=== PATIENT | female | born 1955 | race Native Hawaiian/Other Pacific Islander ===

== ENCOUNTER 2018-06-17 23:53 | Emergency (ER) | payer BC, OTHER ==
[~2018-06-17] VITALS: Ht 160 cm; Wt 79.4 kg
[~2018-06-17 23:53] MED LIST: ASPI81TA31 PO; CLOP75TA15 PO; LIPITOR PO; LOPRESSOR PO; LOVAZA PO; METFORMIN PO
[2018-06-18] MEDS ORDERED: ALBUTEROL SULFATE 2.5 MG/3 ML NEBU ONE (00:12)
[2018-06-18] MEDS ORDERED: IPRATROPIUM BROMIDE 0.5 MG/2.5 ML NEBU ONE (00:13)
[2018-06-18] MEDS ORDERED: ALBUTEROL SULFATE 2.5 MG/3 ML NEBU NEB ONE (00:15)
[2018-06-18] MEDS ORDERED: IPRATROPIUM BROMIDE 0.5 MG/2.5 ML NEBU NEB ONE (00:15)
[2018-06-18] MEDS ORDERED: predniSONE 50 MG TABLET PO ONE (01:30)
[2018-06-18] MEDS ORDERED: predniSONE 50 MG TABLET ONE (01:37)
--- NOTE | 2018-06-18 01:40 | NUR ---
Patient discharged to home in stable conditon. Written and verbal after care instructions given. Patient verbalizes understanding of instructions. Pt ambulated out of ER in steady gait with no acute distress noted. VSS. All belongings with pt. Pt states she feels better.
[2018-06-18 01:42] VITALS: BP 134/77
== END 2018-06-18 01:44 | disposition home or self-care (01) ==
LOC: ER 23:55
DX: J40 Bronchitis, not specified as acute or chronic (principal); E78.5 Hyperlipidemia, unspecified; E11.9 Type 2 diabetes mellitus without complications; Z95.1 Presence of aortocoronary bypass graft; Z90.49 Acquired absence of other specified parts of digestive tract; Z79.82 Long term (current) use of aspirin; Z79.01 Long term (current) use of anticoagulants; Z79.899 Other long term (current) drug therapy
CPT/HCPCS: 71045; 94640; 99283; J7512; A4663; J3590

== ENCOUNTER 2019-05-05 19:43 | Emergency (ER) | payer BC ==
[~2019-05-05] VITALS: Ht 160 cm; Wt 81.2 kg
[2019-05-05] MEDS ORDERED: RAMI5CAP30 PO (19:53)
[2019-05-05] MEDS ORDERED: POTA20PA34 PO (19:53)
[2019-05-05] MEDS ORDERED: FURO-151 PO (19:53)
[2019-05-05] MEDS ORDERED: FENO145T37 PO (19:53)
[2019-05-05] MEDS ORDERED: PREG25CA PO (19:53)
[2019-05-05] MEDS ORDERED: PRAM0.122 PO (19:53)
[2019-05-05] MEDS ORDERED: REPA2TAB PO (19:53)
[2019-05-05] MEDS ORDERED: FLUORESCEIN SODIUM 1 MG STRIP ONE (19:59)
[2019-05-05] MEDS ORDERED: TETRACAINE HCL 0.5% OPHT DROP 2 ML BOTTLE ONE (19:59)
[2019-05-05] MEDS ORDERED: TETRACAINE HCL 0.5% OPHT DROP 2 ML BOTTLE OP ONE (20:00)
[2019-05-05] MEDS ORDERED: FLUORESCEIN SODIUM 1 MG STRIP OP ONE (20:00)
--- NOTE | 2019-05-05 20:00 | NUR ---
PT WALKED IN TO THE ER C/O R EYE ERYTHEMA, ITCHY, WATERY DISCHARGEX1 DAY PT ABLE TO SPEAK CLEAR AND COMPLETE SENTENCES DENIES FEVERS/CHILLS/N/V/D NO APPARENT DISTRESS DENIES WEAR OF CONTACT LENSES DENIES RECENT TRAUMA NOR SURGERIES TO THE SITE USES READING GLASSES KEPT WARM DRY AND COMFORTABLE MONITORED ACCORDINGLY SIDERAILSX2 UP BED AT LOWEST POSITION Addendum: 05/05/19 at 2004 by ANNIE DENIES LIGHT SENSITIVITY DENIES BLURRED VISION PT DESCRIBES BURNING R EYE PAIN AND DISCOMFORT 11/15
[2019-05-05 21:37] LABS: BASOPHILS # (AUTO) 0.1 K/uL (0.0-8.0); BASOPHILS % (AUTO) 1.3 % (0.0-2.0); EOSINOPHILS # (AUTO) 0.3 K/uL (0.0-0.7); EOSINOPHILS % (AUTO) 5.4 % (0.0-7.0); HEMATOCRIT 39.4 % (31.2-41.9); LYMPHOCYTES # (AUTO) 1.5 K/uL (20.0-40.0); LYMPHOCYTES % (AUTO) 26.1 % (20.5-51.5); MEAN CORPUSCULAR HEMOGLOBIN 29.1 uug (24.7-32.8); MEAN CORPUSCULAR HGB CONC 33 g/dL (32.3-35.6); MEAN CORPUSCULAR VOLUME 88.3 fL (75.5-95.3); MONOCYTES # (AUTO) 0.7 K/uL (2.0-10.0); MONOCYTES % (AUTO) 11.9 % (0.0-11.0); NEUTROPHILS # (AUTO) 3.2 K/uL (1.8-8.9); NEUTROPHILS % (AUTO) 55.3 % (38.5-71.5); PLATELET COUNT (AUTO) 264 K/uL (179-408); RED BLOOD CELL COUNT(AUTO) 4.47 MIL/uL (3.63-4.92); WHITE BLOOD COUNT (AUTO) 5.7 K/uL (3.8-11.8)
[2019-05-05] MEDS ORDERED: ACYCLOVIR 200 MG CAPSULE ONE ×2 (21:39→22:57)
[2019-05-05] MEDS ORDERED: ACYCLOVIR 400 MG TABLET PO ONE ×2 (21:45→23:00)
[2019-05-05 21:50] LABS: CREATININE 0.7 mg/dL (0.6-1.3); POTASSIUM 4.3 mmol/L (3.5-5.1)
--- NOTE | 2019-05-05 21:55 | NUR ---
MD PROMPTED TRANSFER RECOMMENDATION FOR HIGHER LEVEL OF CARE: DX HERPES SIMPLEX KERATOSIS PT AWARE AND SIGNED TRANSFER ACKNOWLEDGEMENT FORMS
--- NOTE | 2019-05-05 22:12 | NUR ---
RN (ROXANA) ON THE PHONE WITH [facility]
--- NOTE | 2019-05-05 22:13 | NUR ---
[facility] TRANSFER TO FAX CLINICALS TO [phone] ([facility])
--- NOTE | 2019-05-05 22:54 | NUR ---
OPHTHAMOLOGY ON THE PHONE WITH NANCY
[2019-05-05] MEDS ORDERED: AMOXICILLIN-CLAVUL 875-125MG TABLET ONE (22:57)
[2019-05-05] MEDS ORDERED: AMOXICILLIN-CLAVUL 875-125MG TABLET PO ONE (23:00)
--- NOTE | 2019-05-05 23:47 | NUR ---
Patient discharged to home in stable conditon. Written and verbal after care instructions given. Patient verbalizes understanding of instructions. AMBULATORY W/ STABLE GAIT ALL BELONGINGS W/ PT
[2019-05-06 00:31] VITALS: BP 123/95
== END 2019-05-06 00:01 | disposition home or self-care (01) ==
LOC: ER 19:43
DX: B00.52 Herpesviral keratitis (principal); H05.011 Cellulitis of right orbit; E78.5 Hyperlipidemia, unspecified; E11.9 Type 2 diabetes mellitus without complications; Z95.1 Presence of aortocoronary bypass graft; Z90.49 Acquired absence of other specified parts of digestive tract; Z79.82 Long term (current) use of aspirin; Z79.84 Long term (current) use of oral hypoglycemic drugs; Z79.899 Other long term (current) drug therapy; Z79.01 Long term (current) use of anticoagulants
CPT/HCPCS: 36415; 85025; A4663

== ENCOUNTER 2019-10-26 05:50 | Inpatient (IN) | payer BC ==
[~2019-10-26] VITALS: Ht 165.1 cm; Wt 83.1 kg
[~2019-10-26 05:50] MED LIST changes: +FENO145T21 PO; +FURO-151 PO; -LOVAZA PO; +POTA20PA34 PO; +PRAM0.122 PO; +PREG25CA PO; +RAMI5CAP30 PO; +REPA2TAB PO
--- NOTE | 2019-10-26 05:50 | NUR ---
Dr. Evans at bedside for MSE
--- NOTE | 2019-10-26 06:00 | NUR ---
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 Able to ambulate to [facility] without assistance. c/o dizziness and chest pressure x1 wk. Patient states that she feels like the room is spinning and some light headedness. Patient also states that her SBP was in the high 80s [employer]. Speech is clear and able to make needs known / follow commands. Breathing even and unlabored. no cough or SOB noted. Patient denies any CP but increased pressure with activities. Denies any N / V / D.
[2019-10-26] MEDS ORDERED: REPA2TAB PO (06:13)
[2019-10-26] MEDS ORDERED: isosorbide PO (06:13)
[2019-10-26] MEDS ORDERED: POTA-10 PO (06:13)
[2019-10-26 06:26] LABS: BASOPHILS # (AUTO) 0.1 K/uL (0.0-8.0); BASOPHILS % (AUTO) 1.4 % (0.0-2.0); EOSINOPHILS # (AUTO) 0.5 K/uL (0.0-0.7); EOSINOPHILS % (AUTO) 7.8 % (0.0-7.0); HEMATOCRIT 39.4 % (31.2-41.9); HEMOGLOBIN 13.1 g/dL (10.9-14.3); LYMPHOCYTES # (AUTO) 1.6 K/uL (20.0-40.0); LYMPHOCYTES % (AUTO) 25.5 % (20.5-51.5); MEAN CORPUSCULAR HEMOGLOBIN 28.4 uug (24.7-32.8); MEAN CORPUSCULAR HGB CONC 33 g/dL (32.3-35.6); MEAN CORPUSCULAR VOLUME 85.1 fL (75.5-95.3); MONOCYTES # (AUTO) 0.8 K/uL (2.0-10.0); MONOCYTES % (AUTO) 12.5 % (0.0-11.0); NEUTROPHILS # (AUTO) 3.3 K/uL (1.8-8.9); NEUTROPHILS % (AUTO) 52.8 % (38.5-71.5); PLATELET COUNT (AUTO) 272 K/uL (179-408); RED BLOOD CELL COUNT(AUTO) 4.63 MIL/uL (3.63-4.92); WHITE BLOOD COUNT (AUTO) 6.3 K/uL (3.8-11.8)
--- NOTE | 2019-10-26 06:30 | NUR ---
Patient taken to CT scan in stable condition
[2019-10-26 06:31] LABS: CREATININE 1.1 mg/dL (0.6-1.3); POTASSIUM 3.5 mmol/L (3.5-5.1)
[2019-10-26 06:44] LABS: BILIRUBIN,DIRECT 0.1 mg/dL (0.0-0.2); BILIRUBIN,TOTAL 0.3 mg/dL (0.2-1.0); TOTAL PROTEIN, SERUM 7.3 g/dL (6.4-8.2)
--- NOTE | 2019-10-26 06:44 | NUR ---
Patient back from CT scan
--- NOTE | 2019-10-26 07:04 | NUR ---
Report given to aliyah SULLIVAN
[2019-10-26] MEDS ORDERED: ONDANSETRON 4 MG/2 ML VIAL IV PRN (07:45)
[2019-10-26] MEDS ORDERED: ASPIRIN 325 MG TABLET PO ONE (07:45)
[2019-10-26] MEDS ORDERED: ACETAMINOPHEN 325 MG TABLET PO PRN (07:45)
[2019-10-26] MEDS ORDERED: Z GUARD REMEDY PASTE 57 GM TUBE TOP PRN (07:45)
[2019-10-26] MEDS ORDERED: HYDROCODONE/APAP 5-325MG TABLET PO PRN (07:45)
[2019-10-26] MEDS ORDERED: MAGNESIUM HYDROXIDE 30 ML LIQUID UDC PO PRN (07:45)
--- NOTE | 2019-10-26 07:59 | NUR ---
Telephone report given to Angelica Cunningham pt. will be transfer via wheel chair. Pt. AAOX4. vitals stable. No c/of pain temp of 98.0
--- NOTE | 2019-10-26 08:00 | NUR ---
Received pt in bed AOx4, on room air with no complaints of SOB or distress at this time. No complaints of chest tightness at this time. Oriented to unit, call light and belongings within reach. Bed locked in lowest position with siderails 2x up. Will continue to monitor
[2019-10-26 08:58] VITALS: BP 124/66
[2019-10-26] MEDS ORDERED: ATOR40TA PO (09:55)
[2019-10-26] MEDS ORDERED: CLOPIDOGREL 75 MG TABLET PO SCH (10:00)
[2019-10-26] MEDS ORDERED: ISOSORBIDE MONONITRATE 60 MG TAB.SR.24H PO SCH (10:00)
[2019-10-26] MEDS ORDERED: FENOFIBRATE NANOCRYSTALLIZED 145 MG TABLET PO SCH (10:00)
[2019-10-26] MEDS ORDERED: PRAMIPEXOLE DI HCL 0.125 MG PO SCH (10:00)
[2019-10-26] MEDS ORDERED: REPAGLINIDE 2 MG PO SCH (10:00)
[2019-10-26] MEDS ORDERED: FUROSEMIDE 40 MG TABLET PO SCH (10:00)
[2019-10-26] MEDS ORDERED: METOPROLOL TARTRATE 50 MG TABLET PO SCH (10:00)
[2019-10-26] MEDS ORDERED: EMPA10TA PO (10:10)
[2019-10-26] MEDS ORDERED: CHOL500050 (10:18)
[2019-10-26] MEDS ORDERED: CHOL1CRY2 MC (10:18)
[2019-10-26] MEDS ORDERED: CHOL10002 PO (10:18)
[2019-10-26] MEDS: PREGABALIN 25 MG CAPSULE PO SCH ×2 (11:22→16:50)
[2019-10-26] MEDS: RAMIPRIL 5 MG CAPSULE PO SCH ×2 (11:30→16:55)
[2019-10-26] MEDS: REPAGLINIDE 1 MG TABLET PO SCH ×2 (11:31→16:50)
[2019-10-26 11:35] VITALS: BP_SYST 118; BP_SYST 122; BP_SYST 129; BP_DIAS 59; BP_DIAS 73; BP_DIAS 74
[2019-10-26] MEDS ORDERED: IV NORMAL SALINE 500 ML IV ONE (11:45)
[2019-10-26] MEDS ORDERED: POTASSIUM CHLORIDE 20 MEQ POWDER PACKET GT ONE (11:45)
[2019-10-26] MEDS ORDERED: FURO-152 PO (12:20)
[2019-10-26 15:28] VITALS: BP 108/53
[2019-10-26 16:55] VITALS: BP 101/52
--- NOTE | 2019-10-26 17:00 | NUR ---
No issues throughout the shift. Pt wanted to go home, informed Leticia Garcia, will put in DC orders
[2019-10-26] MEDS ORDERED: METFORMIN HCL 500 MG TABLET PO SCH (18:00)
[2019-10-26] MEDS ORDERED: ATORVASTATIN 40 MG TABLET PO SCH (21:00)
[2019-10-26] MEDS ORDERED: PRAMIPEXOLE 0.25 MG TABLET PO SCH (21:00)
[2019-10-27] MEDS ORDERED: ASPIRIN 81 MG TAB.CHEW PO SCH (09:00)
[2019-10-27] MEDS ORDERED: POTASSIUM CHLORIDE 10 MEQ TAB.PRT.SR PO SCH (09:00)
== END 2019-10-26 21:12 | disposition home or self-care (01) | DRG 280 ==
LOC: ER 05:53 → TELE3 07:42
PROVIDERS: ADMIT Nurse Practitioner Acute Care; ATTEND Nurse Practitioner Acute Care
DX: I25.10 Atherosclerotic heart disease of native coronary artery without angina pectoris (principal); I21.A1 Myocardial infarction type 2; N17.0 Acute kidney failure with tubular necrosis; I50.32 Chronic diastolic (congestive) heart failure; E11.9 Type 2 diabetes mellitus without complications; E78.5 Hyperlipidemia, unspecified; E86.0 Dehydration; Z95.1 Presence of aortocoronary bypass graft; G47.33 Obstructive sleep apnea (adult) (pediatric); I11.0 Hypertensive heart disease with heart failure; R42 Dizziness and giddiness; T50.2X5A Adverse effect of carbonic-anhydrase inhibitors, benzothiadiazides and other diuretics, initial encounter; Y92.89 Other specified places as the place of occurrence of the external cause
CPT/HCPCS: 36415; 70030-TC; 70450; 71045; 85025; 85730; 93005; 93307; G0378; J7040

== ENCOUNTER 2021-10-08 18:35 | Emergency (ER) | payer BC ==
[~2021-10-08] VITALS: Ht 165.1 cm; Wt 81.6 kg
[~2021-10-08 18:35] MED LIST changes: +ATOR40TA PO; +CHOL10002 PO; +EMPA10TA PO; -FURO-151 PO; +FURO-152 PO; -LIPITOR PO; +POTA-10 PO; -POTA20PA34 PO; +isosorbide PO
--- NOTE | 2021-10-08 19:02 | NUR ---
RECEIVED REPORT FROM NATE COY. PT NOTED TO BE IN BED RESTING COMFORTABLY, NO SOB OR LABORED BREATHING. DENIES PAIN AT THIS TIME.
[2021-10-08] MEDS ORDERED: FLUORESCEIN SODIUM 1 MG STRIP OP ONE (19:15)
[2021-10-08] MEDS ORDERED: TETRACAINE HCL 0.5% OPHT DROP 2 ML BOTTLE ONE (19:15)
[2021-10-08] MEDS ORDERED: FLUORESCEIN SODIUM 1 MG STRIP ONE (19:15)
[2021-10-08] MEDS ORDERED: TETRACAINE HCL 0.5% OPHT DROP 2 ML BOTTLE OP ONE (19:15)
[2021-10-08] MEDS ORDERED: ERYT3.5O24 RIGHTEYE (20:44)
[2021-10-08] MEDS ORDERED: MOXI3DRO RIGHTEYE (20:44)
--- NOTE | 2021-10-08 20:48 | NUR ---
Patient discharged to home in stable condition. Written and verbal after care instructions given. Patient verbalizes understanding of instructions. Stressed follow up or return to ER for worsening s/s. Steady gait, denies any N/V. No c/o pain/discomfort upon discharge. Picked up by family.
[2021-10-08 20:49] VITALS: BP 144/76
== END 2021-10-08 20:50 | disposition home or self-care (01) ==
LOC: ER 18:45
DX: B99.9 Unspecified infectious disease (principal); H16.8 Other keratitis; R03.0 Elevated blood-pressure reading, without diagnosis of hypertension; E78.5 Hyperlipidemia, unspecified; Z95.1 Presence of aortocoronary bypass graft; Z79.02 Long term (current) use of antithrombotics/antiplatelets; E11.9 Type 2 diabetes mellitus without complications; Z79.84 Long term (current) use of oral hypoglycemic drugs
CPT/HCPCS: A4663

== ENCOUNTER 2024-05-13 18:39 | Emergency (ER) | payer BC, MEDICARE ==
[~2024-05-13] VITALS: Ht 165.1 cm; Wt 81.6 kg
[~2024-05-13 18:39] MED LIST changes: +ERYT3.5O24 RIGHTEYE; +MOXI3DRO RIGHTEYE
[2024-05-13] MEDS ORDERED: FAMOTIDINE. 20 MG/2 ML VIAL IV ONE ×2 (20:13→20:14)
[2024-05-13] MEDS ORDERED: ONDANSETRON 4 MG/2 ML VIAL ONE (20:13)
[2024-05-13 20:18] LABS: BASOPHILS % (AUTO) 0.4 % (0.0-2.0); EOSINOPHILS # (AUTO) 0.3 K/uL (0.0-0.7); HEMATOCRIT 47.4 % (31.2-41.9); HEMOGLOBIN 15.8 g/dL (10.9-14.3); LYMPHOCYTES # (AUTO) 1.1 K/uL (0.8-4.8); MEAN CORPUSCULAR HGB CONC 33 g/dL (32.3-35.6); MEAN CORPUSCULAR VOLUME 86.8 fL (75.5-95.3); MONOCYTES # (AUTO) 0.9 K/uL (0.1-1.30); NEUTROPHILS # (AUTO) 7.5 K/uL (1.8-8.9); NEUTROPHILS % (AUTO) 76.6 % (38.5-71.5); PLATELET COUNT (AUTO) 320 K/uL (179-408); RED BLOOD CELL COUNT(AUTO) 5.46 MIL/uL (3.63-4.92); RED CELL DISTRIBUTION WIDTH 13.8 % (12.3-17.7); WHITE BLOOD COUNT (AUTO) 9.8 K/uL (3.8-11.8)
[2024-05-13] MEDS: FAMOTIDINE. 20 MG/2 ML VIAL IV ONE (20:24)
[2024-05-13] MEDS: ONDANSETRON 4 MG/2 ML VIAL IV ONE (20:24)
[2024-05-13] MEDS: IV NORMAL SALINE 1000 ML BAG IV ONE (20:24)
[2024-05-13 20:28] LABS: DIFFERENTIAL COMMENT 1
[2024-05-13 20:30] LABS: CALCIUM 10.1 mg/dL (8.5-10.1); POTASSIUM 4.3 mmol/L (3.5-5.1)
[2024-05-13 20:35] LABS: ALBUMIN 4.1 g/dL (3.4-5.0); BILIRUBIN,DIRECT 0.3 mg/dL (0.0-0.2); BILIRUBIN,TOTAL 0.9 mg/dL (0.2-1.0); TOTAL PROTEIN, SERUM 8.9 g/dL (6.4-8.2)
[2024-05-13 23:32] LABS: *BILIRUBIN,URIN NEGATIVE (NEGATIVE); *COLOR,URINE YELLOW (YELLOW); *KETONES,URINE NEGATIVE (NEGATIVE); *PROTEIN,URINE NEGATIVE (NEGATIVE); *UROBILINOGEN,URINE 0.2 E.U./dl (NORMAL); LEUKOCYTE ESTERASE ,URINE TRACE (NEGATIVE); NITRITE, URINE NEGATIVE (NEGATIVE); PH,URINE 5.5 (5.0-8.0); UGLUCOSE 3+ (NEGATIVE)
[2024-05-13 23:50] LABS: *BLOOD, URINE TRACE LYSED (NEGATIVE); *CLARITY,URINE SLIGHTLY CLOUDY (CLEAR)
[2024-05-14] LABS: BACTERIA,URINE NONE SEEN /HPF (NONE SEEN); RBC,URINE 0-3 /HPF (0-3); SQUAMOUS EPITHELIAL CELL,UR FEW /HPF (NONE SEEN); WBC,URINE 50-80 /HPF (0-3)
[2024-05-14] MEDS ORDERED: METO25TA6 PO (00:57)
[2024-05-14] MEDS ORDERED: PRAM0.253 PO (00:57)
[2024-05-14] MEDS ORDERED: ISOS60TA72 PO (00:57)
[2024-05-14] MEDS ORDERED: METF-442 PO (00:57)
[2024-05-14] MEDS ORDERED: RAMI10CA69 PO (00:57)
[2024-05-14] MEDS ORDERED: DULA1.5P SQ (00:57)
[2024-05-14] MEDS ORDERED: ALOG25TA PO (00:57)
[2024-05-14] MEDS ORDERED: REMEDY ESSENTIAL ZINC PASTE 113 GM TP PRN (02:00)
[2024-05-14] MEDS ORDERED: ENOXAPARIN SODIUM 40 MG/0.4 ML DISP.SYRIN SQ SCH (02:00)
[2024-05-14] MEDS ORDERED: MAGNESIUM HYDROXIDE 30 ML LIQUID UDC PO PRN (02:00)
[2024-05-14] MEDS ORDERED: ONDANSETRON 4 MG/2 ML VIAL IV PRN (02:00)
[2024-05-14] MEDS ORDERED: ACETAMINOPHEN 325 MG TABLET PO PRN (02:00)
[2024-05-14] MEDS ORDERED: LOPERAMIDE HCL 2 MG CAPSULE PO ONE (02:15)
[2024-05-14 03:17] VITALS: BP 141/78; TEMP 98; O2SAT 98
[2024-05-14] MEDS ORDERED: PANTOPRAZOLE SODIUM 40 MG TABLET.DR PO SCH (07:00)
== END 2024-05-14 03:19 | disposition admitted as inpatient to this hospital (09) ==
LOC: ER 20:22
DX: R11.2 Nausea with vomiting, unspecified (principal); R19.7 Diarrhea, unspecified; E11.9 Type 2 diabetes mellitus without complications; R42 Dizziness and giddiness; R79.89 Other specified abnormal findings of blood chemistry; R55 Syncope and collapse; R94.31 Abnormal electrocardiogram [ECG] [EKG]; E78.5 Hyperlipidemia, unspecified; E86.0 Dehydration; I11.9 Hypertensive heart disease without heart failure; I25.10 Atherosclerotic heart disease of native coronary artery without angina pectoris; Z79.02 Long term (current) use of antithrombotics/antiplatelets; Z79.82 Long term (current) use of aspirin; Z79.84 Long term (current) use of oral hypoglycemic drugs; Z79.899 Other long term (current) drug therapy; Z88.7 Allergy status to serum and vaccine; Z90.49 Acquired absence of other specified parts of digestive tract
CPT/HCPCS: 99285; 96374; 96361; 96375; 80076; 80048; 81001; 83880; 83690; 85025; 84484 ×2; 36415; 93005 ×2; 87086; J3490; J2405; J7040; A4606; A4663

== ENCOUNTER 2024-07-01 18:43 | Inpatient (IN) | payer BC, MEDICARE ==
[~2024-07-01] VITALS: Ht 162.6 cm; Wt 77.1 kg
[~2024-07-01 18:43] MED LIST changes: +ALOG25TA PO; +DULA1.5P SQ; -ERYT3.5O24 RIGHTEYE; +ISOS60TA72 PO; -LOPRESSOR PO; +METF-442 PO; -METFORMIN PO; +METO25TA6 PO; -MOXI3DRO RIGHTEYE; -PRAM0.122 PO; +PRAM0.253 PO; +RAMI10CA69 PO; -RAMI5CAP30 PO; -REPA2TAB PO; -isosorbide PO
[2024-07-01 19:57] LABS: BASOPHILS % (AUTO) 0.3 % (0.0-2.0); EOSINOPHILS % (AUTO) 0.2 % (0.0-7.0); HEMATOCRIT 41.1 % (31.2-41.9); HEMOGLOBIN 13.6 g/dL (10.9-14.3); LYMPHOCYTES # (AUTO) 0.5 K/uL (0.8-4.8); LYMPHOCYTES % (AUTO) 4.1 % (20.5-51.5); MEAN CORPUSCULAR HEMOGLOBIN 28.4 uug (24.7-32.8); MEAN CORPUSCULAR HGB CONC 33 g/dL (32.3-35.6); MEAN CORPUSCULAR VOLUME 86.2 fL (75.5-95.3); MONOCYTES # (AUTO) 0.4 K/uL (0.1-1.30); MONOCYTES % (AUTO) 3.3 % (0.0-11.0); NEUTROPHILS # (AUTO) 10.2 K/uL (1.8-8.9); NEUTROPHILS % (AUTO) 92.1 % (38.5-71.5); PLATELET COUNT (AUTO) 234 K/uL (179-408); RED BLOOD CELL COUNT(AUTO) 4.77 MIL/uL (3.63-4.92); RED CELL DISTRIBUTION WIDTH 13.8 % (12.3-17.7)
[2024-07-01 20:00] LABS: DIFFERENTIAL COMMENT 1
[2024-07-01 20:04] LABS: CALCIUM 9.4 mg/dL (8.5-10.1); CARBON DIOXIDE 24 mmol/L (21-32); CHLORIDE 104 mmol/L (98-107); GLUCOSE 188 mg/dL (74-106); POTASSIUM 3.5 mmol/L (3.5-5.1); SODIUM SERUM 141 mmol/L (136-145); UREA NITROGEN, BLOOD 19 mg/dL (7-18)
[2024-07-01 20:12] LABS: ALANINE AMINOTRANSFERASE 28 U/L (14-59); ALBUMIN 3.5 g/dL (3.4-5.0); ALKALINE PHOSPHATASE 53 U/L (50-136); ASPARTATE AMINOTRANSFERASE 12 U/L (15-37); BILIRUBIN,DIRECT 0.3 mg/dL (0.0-0.2); TOTAL PROTEIN, SERUM 8.1 g/dL (6.4-8.2)
[2024-07-01 20:14] LABS: LACTIC ACID 2.5 mmol/L (0.4-2.0)
[2024-07-01 20:15] LABS: MAGNESIUM 1.4 mg/dL (1.8-2.4)
[2024-07-01] MEDS: ONDANSETRON 4 MG/2 ML VIAL IV ONE (21:10)
[2024-07-01] MEDS ORDERED: MAGNESIUM SULFATE/D5W 200 ML ONE (21:13)
[2024-07-01] MEDS ORDERED: ONDANSETRON 4 MG/2 ML VIAL ONE (21:13)
[2024-07-01] MEDS: MAGNESIUM SULFATE/D5W 100 ML IV SCH (21:18)
[2024-07-01] MEDS: IV NORMAL SALINE 500 ML IV ONE (21:18)
[2024-07-02] MEDS ORDERED: ONDANSETRON 4 MG/2 ML VIAL IV PRN
[2024-07-02] MEDS: ENOXAPARIN SODIUM 80 MG/0.8 ML DISP.SYRIN SQ SCH (01:02)
[2024-07-02 01:10] VITALS: BP 109/51; TEMP 98
[2024-07-02] MEDS: MECLIZINE HCL 12.5 MG TABLET PO PRN (01:16)
[2024-07-02] MEDS: IV NS 1000 ML 1,000 ML IV PRN (01:20)
[2024-07-02 03:24] LABS: *BILIRUBIN,URIN NEGATIVE (NEGATIVE); *BLOOD, URINE 2+ (NEGATIVE); *CLARITY,URINE CLEAR (CLEAR); *COLOR,URINE Other (YELLOW); *KETONES,URINE NEGATIVE (NEGATIVE); *PROTEIN,URINE 1+ (NEGATIVE); *UROBILINOGEN,URINE 0.2 E.U./dl (NORMAL); LEUKOCYTE ESTERASE ,URINE 1+ (NEGATIVE); NITRITE, URINE POSITIVE (NEGATIVE); UGLUCOSE 3+ (NEGATIVE)
[2024-07-02 03:57] LABS: BACTERIA,URINE MODERATE /HPF (NONE SEEN)
[2024-07-02 03:58] LABS: MUCUS,URINE MODERATE /LPF (0-FEW); SQUAMOUS EPITHELIAL CELL,UR FEW /HPF (NONE SEEN)
[2024-07-02 06:45] LABS: BASOPHILS % (AUTO) 0.5 % (0.0-2.0); EOSINOPHILS % (AUTO) 0.5 % (0.0-7.0); HEMATOCRIT 37.8 % (31.2-41.9); HEMOGLOBIN 12.9 g/dL (10.9-14.3); LYMPHOCYTES # (AUTO) 0.8 K/uL (0.8-4.8); LYMPHOCYTES % (AUTO) 9.8 % (20.5-51.5); MEAN CORPUSCULAR HEMOGLOBIN 29.3 uug (24.7-32.8); MEAN CORPUSCULAR HGB CONC 34 g/dL (32.3-35.6); MEAN CORPUSCULAR VOLUME 86.3 fL (75.5-95.3); MONOCYTES # (AUTO) 0.6 K/uL (0.1-1.30); MONOCYTES % (AUTO) 6.9 % (0.0-11.0); NEUTROPHILS # (AUTO) 6.9 K/uL (1.8-8.9); NEUTROPHILS % (AUTO) 82.3 % (38.5-71.5); PLATELET COUNT (AUTO) 208 K/uL (179-408); RED BLOOD CELL COUNT(AUTO) 4.38 MIL/uL (3.63-4.92); WHITE BLOOD COUNT (AUTO) 8.4 K/uL (3.8-11.8)
[2024-07-02 07:04] LABS: CALCIUM 8.4 mg/dL (8.5-10.1); CREATININE 0.8 mg/dL (0.6-1.3); MAGNESIUM 2.3 mg/dL (1.8-2.4); PHOSPHOROUS 3.7 mg/dL (2.5-4.9)
[2024-07-02 07:09] LABS: DIFFERENTIAL COMMENT 1
[2024-07-02 07:26] LABS: POTASSIUM 3.7 mmol/L (3.5-5.1)
[2024-07-02 08:28] VITALS: BP_SYST 142; BP_SYST 180; BP_DIAS 63; BP_DIAS 88; TEMP 100.7; O2SAT 91
[2024-07-02] MEDS: FENOFIBRATE NANOCRYSTALLIZED 145 MG TABLET PO SCH (08:50)
[2024-07-02] MEDS: METOPROLOL TARTRATE 25 MG TABLET PO SCH (08:50)
[2024-07-02] MEDS: PREGABALIN 25 MG CAPSULE PO SCH ×2 (08:50→16:27)
[2024-07-02] MEDS: CLOPIDOGREL 75 MG TABLET PO SCH (08:51)
[2024-07-02] MEDS: ATORVASTATIN 40 MG TABLET PO SCH (08:51)
[2024-07-02] MEDS: FUROSEMIDE 20 MG TABLET PO SCH (08:51)
[2024-07-02] MEDS: ASPIRIN 81 MG TAB.CHEW PO SCH (08:51)
[2024-07-02] MEDS: CHOLECALCIFEROL 1,000 UNIT TABLET PO SCH (08:51)
[2024-07-02] MEDS: ISOSORBIDE MONONITRATE 60 MG TAB.SR.24H PO SCH (08:52)
[2024-07-02] MEDS ORDERED: RANO500T6 PO (10:51)
[2024-07-02 11:08] VITALS: BP 92/44; TEMP 98.7; O2SAT 94
[2024-07-02 11:10] VITALS: BP 101/49; TEMP 98.7; O2SAT 94
[2024-07-02 11:12] VITALS: BP 92/50; TEMP 98.7; O2SAT 94
[2024-07-02] MEDS: CEFTRIAXONE 1 G in IV DEXTROSE 5% 50 ML IV SCH (11:56)
[2024-07-02] MEDS ORDERED: RAMI5CAP66 PO (13:04)
[2024-07-02] MEDS ORDERED: PREG75CA76 PO (13:04)
[2024-07-02] MEDS ORDERED: EMPA25TA PO (13:04)
[2024-07-02] MEDS ORDERED: DEXTROSE 50% 50 ML DISP.SYRIN IV PRN (13:30)
[2024-07-02] MEDS: BLOOD SUGAR DIAGNOSTIC 1 EACH STRIP VI SCH (16:24)
[2024-07-02] MEDS: INSULIN REGULAR, HUMAN 1000 UNIT/10 ML VIAL SQ PRN (16:26)
[2024-07-02 19:00] VITALS: BP 124/54; TEMP 101.4; O2SAT 93
[2024-07-02] MEDS: PRAMIPEXOLE 0.25 MG TABLET PO SCH (20:46)
[2024-07-02] MEDS: RANOLAZINE 500 MG TAB.ER.12H PO SCH (20:46)
[2024-07-02] MEDS: ACETAMINOPHEN 325 MG TABLET PO PRN (20:47)
[2024-07-03] VITALS: BP 113/63; TEMP 98.5; O2SAT 95
[2024-07-03 04:00] VITALS: BP 128/69; TEMP 99.5; O2SAT 96
[2024-07-03 07:29] LABS: BASOPHILS % (AUTO) 0.5 % (0.0-2.0); EOSINOPHILS # (AUTO) 0.1 K/uL (0.0-0.7); EOSINOPHILS % (AUTO) 1.5 % (0.0-7.0); HEMOGLOBIN 12.5 g/dL (10.9-14.3); LYMPHOCYTES # (AUTO) 0.7 K/uL (0.8-4.8); LYMPHOCYTES % (AUTO) 8.5 % (20.5-51.5); MEAN CORPUSCULAR HGB CONC 34 g/dL (32.3-35.6); MONOCYTES # (AUTO) 0.9 K/uL (0.1-1.30); MONOCYTES % (AUTO) 10.8 % (0.0-11.0); NEUTROPHILS # (AUTO) 6.3 K/uL (1.8-8.9); NEUTROPHILS % (AUTO) 78.7 % (38.5-71.5); PLATELET COUNT (AUTO) 181 K/uL (179-408); RED BLOOD CELL COUNT(AUTO) 4.31 MIL/uL (3.63-4.92); RED CELL DISTRIBUTION WIDTH 13.5 % (12.3-17.7); WHITE BLOOD COUNT (AUTO) 8.1 K/uL (3.8-11.8)
[2024-07-03 07:48] VITALS: TEMP 98
[2024-07-03 07:48] LABS: CALCIUM 8.1 mg/dL (8.5-10.1); CREATININE 0.7 mg/dL (0.6-1.3); MAGNESIUM 1.9 mg/dL (1.8-2.4); PHOSPHOROUS 2.3 mg/dL (2.5-4.9); POTASSIUM 3.3 mmol/L (3.5-5.1)
[2024-07-03 07:49] LABS: DIFFERENTIAL COMMENT 1
[2024-07-03] MEDS ORDERED: CEFD300C3 PO (08:40)
[2024-07-03 08:51] VITALS: BP 122/55
[2024-07-03] MEDS: RAMIPRIL 5 MG CAPSULE PO SCH (08:51)
[2024-07-03] MEDS ORDERED: POTASSIUM CHLORIDE 50 ML IV SCH (09:00)
[2024-07-03] MEDS: POTASSIUM CHLORIDE 20 MEQ TAB.PRT.SR PO ONE (09:25)
[2024-07-03] MEDS: POTASSIUM CHLORIDE 10 MEQ TAB.PRT.SR PO ONE (11:36)
== END 2024-07-03 12:00 | disposition home or self-care (01) | DRG 640 ==
LOC: ER 18:43 → TELE3 23:55
PROVIDERS: ADMIT Nurse Practitioner Acute Care; ATTEND Nurse Practitioner Acute Care
DX: E86.0 Dehydration (principal); I21.A1 Myocardial infarction type 2; D68.59 Other primary thrombophilia; N39.0 Urinary tract infection, site not specified; I50.32 Chronic diastolic (congestive) heart failure; E87.20 Acidosis, unspecified; I25.10 Atherosclerotic heart disease of native coronary artery without angina pectoris; I11.0 Hypertensive heart disease with heart failure; Z95.1 Presence of aortocoronary bypass graft; Z95.5 Presence of coronary angioplasty implant and graft; Z79.899 Other long term (current) drug therapy; Z79.02 Long term (current) use of antithrombotics/antiplatelets; Z79.84 Long term (current) use of oral hypoglycemic drugs; E66.9 Obesity, unspecified; Z68.29 Body mass index [BMI] 29.0-29.9, adult; E83.42 Hypomagnesemia; E11.9 Type 2 diabetes mellitus without complications; E78.5 Hyperlipidemia, unspecified; I45.10 Unspecified right bundle-branch block
CPT/HCPCS: 36415; 70450; 71045; 83605; 83735; 84100; 84484; 85025; 85730; 87040; 93307; A4606; A4663; G0378; J0696; J1650; J1815; J2405; J3475; J7040; J8597